=== PATIENT | female | born 1960 | race Caucasian/White ===

== ENCOUNTER → 2025-04-24 07:49 | Outpatient (REF) | payer OTHER, SELFPAY | LOC: RCS 07:49 | PROVIDERS: ATTENDING PHYSICIAN Internal Medicine Cardiovascular Disease; FAMILY PHYSICIAN Internal Medicine | DX: R07.2 Precordial pain (principal) | CPT/HCPCS: 78452; 93017; A9500; J2785 ==

== ENCOUNTER → 2025-05-08 14:50 | Outpatient (REF) | payer OTHER, SELFPAY | LOC: RCS 14:50 | PROVIDERS: ATTENDING PHYSICIAN Internal Medicine Cardiovascular Disease; FAMILY PHYSICIAN Internal Medicine | DX: R06.09 Other forms of dyspnea (principal) | CPT/HCPCS: 93306 ==

== ENCOUNTER 2025-09-19 15:41 | Observation (INO) | payer OTHER, SELFPAY ==
[2025-09-19] VITALS (13 sets, daily range): BP systolic 126–176; BP diastolic 46–108; BMI 23.3
--- NOTE | 2025-09-19 09:01 | EDRN ---
Dr. Rodriguez in room w/ pt and spouse.
[2025-09-19] MEDS: ZOFRAN 4 MG IV ×3 (09:23→14:44)
[2025-09-19] MEDS: VERSED 1 MG IV (09:24)
--- NOTE | 2025-09-19 09:26 | ED.GENMED ---
History of Present Illness
General
Chief Complaint: Abdominal Symptoms
Source: patient and spouse
Exam Limitations: none
Time Seen by Provider: 09/19/25 09:00
History of Present Illness
History of Present Illness:
Patient started last evening with chills nausea anxious feeling. She took her Ativan which she thought she threw up. She has had these issues in the past. No abdominal pain no chest pain. Some tingling of her arms and legs. Under significant
stress.
Past History
Past History
ED Past Medical History: COPD, GERD, HTN, Hypercholesterolemia, NIDDM (Diet controlled), Hypothyroidism and Other (H-pylori)
ED Past Surgical History: Appendectomy, Cholecystectomy and Gynecological
Social History
Tobacco: Smoker
Alcohol: None
Drug: None
Personal:
Living: with family
Review of Systems
Review of Systems
All Other Systems: Not applicable
Constitutional: Reports chills; Denies fever
Respiratory: Denies cough
ABD/GI: Denies abdominal pain
: Reports no symptoms
Phy Exam
Physical Exam
Physical Exam:
GENERAL: Alert and oriented in no apparent distress
EYE: Orbits normal.
NECK: Supple
ENT: Pharynx without erythema
CARDIAC: Regular rate and rhythm without any obvious murmurs.
LUNGS: Clear breath sounds,normal
ABDOMEN: Soft, without focal tenderness or distention
NEUROLOGICAL: Alert and oriented , grossly non-focal
SKIN: Warm and dry, no rash or lesion, no discoloration, skin intact.
MUSCULOSKELETAL: No edema,no deformity.Good color
PSYCH: Normal and appropriate interaction. Anxious
Course
Orders/Labs/Results
Orders:
Orders
09/19/25 09:06
Cardiac Monitoring- Treatment ONCE
IV Insert/Care/Rem.- Treatment PRN
Urinalysis Reflex To Culture Urgent
0.9% Sodium Chloride 1000 ml [Nss] 1,000 ml IV BOLUS
Midazolam HCl [Versed] 1 mg IV NOW STA
Ondansetron Injectable [Zofran] 4 mg IV NOW STA
Pulse Ox/cont/shift [RESP] Stat
Quantity: 1
09/19/25 09:07
Electrocardiogram (*1) Stat
Reason for Study: Abdominal Pain
EKG- Treatment ONCE
09/19/25 09:23
COVID-19 Antigen Urgent
Source: Nasal Swab
Complete Blood Count/With Diff Urgent
Comprehensive Metabolic Panel Urgent
Lipase Urgent
Troponin I Urgent
Blood Culture Q30M
BETH Source: Blood/Venous
Specimen Description:
Influenza A+B Rapid Molecular Urgent
BETH Source: Nasal Swab
Specimen Description:
09/19/25 09:51
Ondansetron Injectable [Zofran] 4 mg IV NOW STA
09/19/25 10:11
CT Abd/Pel (IV only)-DH only Urgent
Comment:
Reason For Exam: Recurrent vomiting
09/19/25 10:26
Blood Culture Q30M
BETH Source: Blood/Venous
Specimen Description:
09/19/25 14:36
Ondansetron Injectable [Zofran] 4 mg IV NOW STA
Abnormal Lab Results
09/19/25
09:23
Absolute Lymphs (auto) 0.9 L 10^3/uL
(1.2-3.4)
Neutrophils % 84.8 H %
(42.2-75.2)
Lymphocytes % 13.2 L %
(20.5-51.1)
Monocytes % 1.4 L %
(1.7-9.3)
Carbon Dioxide 21 L mmol/L
(22-30)
Glucose 141 H mg/dl
(70-99)
Calcium 10.8 H mg/dl
(8.4-10.2)
AST 38 H U/L
(14-36)
Albumin 5.1 H g/dl
(3.5-5.0)
09/19/25 09:23
09/19/25 09:23
Vital Signs
Initial and Last Documented VS:
Initial Vital Signs
Temp Pulse Resp BP Pulse Ox
98.4 F 78 16 157/83 100
09/19/25 08:33 09/19/25 08:33 09/19/25 08:33 09/19/25 08:33 09/19/25 08:33
Last Documented Vital Signs
Temp Pulse Resp BP Pulse Ox
98.4 F 49 16 149/73 97
09/19/25 08:33 09/19/25 13:15 09/19/25 13:15 09/19/25 13:00 09/19/25 13:29
MDM/Problems Addressed
Differential Diagnosis Includes:
Patient complains of acute onset of nausea chills fatigue. Large differential including viral syndrome, component of anxiety, other infectious issue. Clinically not in acute abdomen. Doubt cardiac but will check for completeness. Nausea meds
fluids. Dose of her antianxiety medication.
*Radiology
Radiology exam reviewed: radiology read reviewed (No acute findings. Left adrenal mass)
*Pulse Oximetry
SaO2: 100
Oxygen Mode of Delivery: Room air
Patient hypoxic: no
*EKG
Interpreted by ED Provider?: Yes
Interpretation: abnormal
Comparison EKG: changes noted
Heart Rate: 41
Rate: bradycardiac
Rhythm: sinus
[place]: normal axis
Interval: normal interval
QRS Pattern: normal QRS
Ischemia: no ischemia
*Critical Care Note
Total Time (30-74mins, 75-104mins- exclusive of procedures): Not Applicable
Data Reviewed
Review of Other/Old Records Reveals: Labs, Records and Testing
Update Note
Update Note:
0950.... Patient rechecked. Moderate bradycardia although stable blood pressure. No ischemic changes. Monitor will run from 40-70. I went in to check on the patient. Heart rate when I when it was 52. She states she felt somewhat improved.
However nausea has returned. Will continue to monitor heart rate and repeat dose of Zofran. QT interval within normal limits.
1015.... Patient rechecked multiple times. Remained stable. Still nausea. At times will get mildly bradycardic but remains with stable blood pressure. CT scan pending.
ED Attending Note
-
Portions of this chart may have been created with voice recognition software.� Occasional wrong word or��sound alike� substitutions may have occurred due to the inherent limitations of voice recognition software.
Discharge Plan
Departure
Patient Disposition: Admit
Date of Disposition: 09/19/25
Time of Disposition: 14:02
Presentation/result/management discussed w/ accepting MD/DO: Hospitalist
Discharge Problem:
Recurrent vomiting, new adrenal mass, Episodic bradycardia
Prescriptions:
No Action
levothyroxine [Synthroid] 137 MCG tablet
137 mcg PO DAILY
lorazepam 1 MG tablet
1 mg PO BID
celecoxib 200 MG capsule
200 mg PO HS
sertraline 100 MG tablet
100 mg PO HS
simvastatin 10 MG tablet
10 mg PO HS
aspirin [Aspir-Low] 81 MG tablet,delayed release (DR/EC)
81 mg PO HS
lansoprazole [Prevacid] 30 MG capsule,delayed release(DR/EC)
30 mg PO HS
metoprolol tartrate 25 MG tablet
25 mg PO HS
cholecalciferol (vitamin D3) 2,000 UNIT tablet
2,000 unit PO HS
vitamin E (dl, acetate) 400 UNITS capsule
400 units PO HS
biotin 1 MG capsule
1 mg PO HS
Referrals:
Leon Nieves DO [Family Provider, Internal Medicine]
Interventions
Interventions:
*Risk Screen - Suicide Last Done: 09/19/25 08:35
*General Assessment Last Done: 09/19/25 09:48
*Neglect/Abuse Screening Last Done: 09/19/25 08:35
*ED- Fall Risk Assessment Last Done: 09/19/25 09:48
*ED COVID-19 Vaccine History Last Done: 09/19/25 09:48
*ED Influenza Vaccine History Last Done: 09/19/25 09:48
HO-Saiobo-Dlqcvljruz Assessment Last Done: 09/19/25 09:48
Discharge Date and Time
Print Language: FRENCH
[2025-09-19] MEDS: NSS 1000 IV ×2 (09:37→18:01)
[2025-09-19 09:47] LABS: Hematocrit 41.7 % (37.0-47.0); Hemoglobin 14.9 g/dL (12.0-16.0); Mean Corp Hgb Conc. 35.7 g/dL (33.0-37.0); Mean Corpuscular Volume 81.8 fL (81.0-99.0); Nucleated Red Blood Cells % 0 %; Platelet Count 375 10^3/uL (130-400); Red Cell Dist. Width 12.5 % (11.5-14.5)
--- NOTE | 2025-09-19 10:02 | EDRN ---
Pt developed nausea again w/ a second dose of Zofran administered. HR 40's- low 50's. Dr. Rodriguez in to speak w/pt again.
[2025-09-19 10:07] LABS: ALT (SGPT) 30 U/L (0-35); AST (SGOT) 38 U/L (14-36); Albumin 5.1 g/dl (3.5-5.0); Alkaline Phosphatase 121 U/L (38-126); Blood Urea Nitrogen 11 mg/dl (7-17); Calcium 10.8 mg/dl (8.4-10.2); Carbon Dioxide 21 mmol/L (22-30); Chloride 105 mmol/L (98-107); Glucose 141 mg/dl (70-99); Lipase 98 U/L (23-300); Potassium 3.6 mmol/L (3.5-5.1); Sodium 137 mmol/L (135-145); Total Protein 7.9 g/dl (6.3-8.2); eGFR > 60.00
[2025-09-19 10:13] LABS: COVID-19 Antigen Negative (Negative)
[2025-09-19 10:17] LABS: Troponin I 0.014 ng/ml
--- NOTE | 2025-09-19 15:18 | HPS.HSE ---
Family Physician
-
Family Physician: Leon Nieves
Chief Complaint
-
Nausea and feeling anxious
History of Present Illness
65-year-old female with nausea and feeling anxious. She took Ativan and vomited back to. Vomited many times and not able to keep anything down. No abdominal pain. No fevers. She feels anxious
Medical History
Past Medical History
Past Medical History: Reports Other
Additional Past Medical History:
Migraines, small meningioma, sarcoidosis, hypertension, hyperlipidemia, hypothyroidism, uterine fibroids, diabetes,, history of Graves' disease, anxiety
Past Surgical History: Reports Other
Additional Past Surgical History:
Appendectomy, cholecystectomy, history of oral surgery, right carpal tunnel surgery, tubal ligation
Social History
Tobacco: Former Smoker
Alcohol: None
Drug: Marijuana
Living: With Family
Family History
Family History: Cancer (prostate ca father), Diabetes (father) and Other (mom copd)
Allergies / Home Medications
Allergies reflects when Allergies were last updated in [facility].
Home Medications with original date entered in [facility]
Allergy/Medication List:
Allergies
Allergy/AdvReac Type Severity Reaction Status Date / Time
codeine Allergy Hives Verified 09/19/25 08:33
Home Medications
levothyroxine 137 mcg tablet (Synthroid) 137 mcg PO MOTUWETHFRSA 08/02/09
lorazepam 1 mg tablet 1 mg PO BID 06/07/18
biotin 1 mg capsule 1 mg PO HS 11/27/18
cholecalciferol (vitamin D3) 50 mcg (2,000 unit) tablet 2,000 unit PO HS 11/27/18
simvastatin 10 mg tablet 10 mg PO HS 11/27/18
aspirin 81 mg tablet 81 mg PO DAILY 09/19/25
irbesartan 75 mg tablet 75 mg PO DAILY 09/19/25
levothyroxine 100 mcg capsule 100 mcg PO HUTTON 09/19/25
nifedipine 60 mg tablet,extended release 24 hr 60 mg PO HS 09/19/25
tizanidine 4 mg tablet 4 mg PO TIDPRN PRN muscle spasm 09/19/25
Review of Systems
-
A 12 point ROS was completed and negative except as noted: Yes
Cardiac: Denies Chest Pain
Abdomen/GI: Reports Nausea and Vomiting; Denies Abdominal Pain or Diarrhea
Psych: Reports Anxiety
Physical Exam
Vital Signs
Vital Signs
Temp Pulse Resp BP Pulse Ox
98.4 F 49 16 149/73 97
09/19/25 08:33 09/19/25 13:15 09/19/25 13:15 09/19/25 13:00 09/19/25 13:29
Physical Exam
General: Conversant and Other (anxious)
Respiratory: Clear
Cardiac: S1/S2 and Regular Rhythm
GI: Soft, Non Tender and Normal Bowel Sounds
Neuro: AO x 3 and Nonfocal/grossly intact
Psych: Anxious
Laboratory Results
-
09/19/25 09:23
09/19/25 09:23
Laboratory Results
Total Bilirubin 0.8 mg/dl (0.2-1.3) 09/19/25 09:23
AST 38 U/L (14-36) H 09/19/25 09:23
ALT 30 U/L (0-35) 09/19/25 09:23
Alkaline Phosphatase 121 U/L (38-126) 09/19/25 09:23
Troponin I 0.014 ng/ml 09/19/25 09:23
Lipase 98 U/L (23-300) 09/19/25 09:23
Impression/Plan
-
IMPRESSION/PLAN:
CT abdomen and pelvis with IV contrast-no acute pathology. Simple renal cyst. Enlarged. Bilateral too small to characterize hypodense renal lesions likely cysts increased in number. Left adrenal mass 1.5 cm. Enlarged. Pet imaging recommended
mild atherosclerotic vascular disease. There is moderate fecal material throughout the colon
# Intractable vomiting
Likely secondary to marijuana use
Admit observation
Antiemetics, IV fluids
Sips of clears
Advised to stop marijuana
# Hypothyroidism history of Graves' disease--continue levothyroxine
# Mild hypercalcemia-likely secondary to dehydration. Follow with hydration
# Hyperlipidemia/atherosclerosis-continue simvastatin, aspirin
# Hypertension-continue nifedipine, irbesartan
# Anxiety-continue lorazepam
# History of meningioma
# Diabetes- Diet controlled- Accu checks and SSI
# Constipation-bowel regimen
# Sarcoidosis
# Migraines
# Diet-controlled diabetes
# 1.5 cm adrenal mass-PET scan as outpatient-patient aware
# Ex Smoker
# DVT prophylaxis-Lovenox
# Full code
Discussed with significant other at bedside
[2025-09-19 16:11] LABS: Urine Character Clear (Clear)
[2025-09-19 16:25] LABS: Urine White Cell 0-2 /HPF (0-5)
[2025-09-19 17:09] LABS: TSH 0.46 uIU/ml (0.47-4.68)
[2025-09-19] MEDS: LOVENOX 40 MG SC (18:08)
--- NOTE | 2025-09-19 19:10 | PTCARENOTE ---
rec'd pt from ER. ambulated to bed. denies pain. NSS started at 75ml/hr. oriented to unit. call schwartz in reach
[2025-09-19] MEDS: ATIVAN 1 MG PO (20:04)
[2025-09-19] MEDS: COLACE 100 MG PO (20:04)
[2025-09-19] MEDS: SENOKOT 8.6 MG PO (20:04)
[2025-09-19] MEDS: LIPITOR 10 MG PO (20:04)
[2025-09-19] MEDS: VITAMIN D3 (cholecalciferol) 50 MCG PO (20:07)
[2025-09-19] MEDS: PROCARDIA XL (EXTENDED RELEASE) 60 MG PO (21:27)
[2025-09-20 00:16] LABS: Glucose - Point of Care 107 mg/dl (70-99)
[2025-09-20 03:09] VITALS: BP 107/57
[2025-09-20] MEDS: SYNTHROID 100 MCG PO (06:03)
[2025-09-20] MEDS: NSS 1000 IV (06:04)
[2025-09-20 06:18] LABS: Glucose - Point of Care 100 mg/dl (70-99)
[2025-09-20 07:04] VITALS: BP 122/66
[2025-09-20] MEDS: AVAPRO 75 MG PO (07:42)
[2025-09-20] MEDS: ATIVAN 1 MG PO (07:42)
[2025-09-20] MEDS: ASPIR LOW (ENTERIC COATED) 81 MG PO (07:42)
[2025-09-20] MEDS: SENOKOT PO (07:52)
[2025-09-20] MEDS: COLACE PO (07:52)
[2025-09-20 09:39] LABS: Blood Urea Nitrogen 13 mg/dl (7-17); Calcium 9.3 mg/dl (8.4-10.2); Carbon Dioxide 26 mmol/L (22-30); Chloride 105 mmol/L (98-107); Estimated Creatinine Clearance 72 ml/min; Glucose 83 mg/dl (70-99); Potassium 3.4 mmol/L (3.5-5.1); Sodium 139 mmol/L (135-145); eGFR > 60.00
[2025-09-20 11:45] VITALS: BP 126/46
[2025-09-20 11:45] LABS: Glucose - Point of Care 96 mg/dl (70-99)
[2025-09-20] MEDS: KCL 40 MEQ PO (14:05)
--- NOTE | 2025-09-20 14:26 | W.PN.HOSP.TC ---
Addendum entered and electronically signed by Kathy Leon MD 09/20/25 14:37:
Hypokalemia-replace
Patient states that she had loose bowel movements last night and also another bowel movement this morning
Original Note:
Today's Communication/Plan
-
Discharge
Assessment / Plan
Assessment / Plan
CT abdomen and pelvis with IV contrast-no acute pathology. Simple renal cyst. Enlarged. Bilateral too small to characterize hypodense renal lesions likely cysts increased in number. Left adrenal mass 1.5 cm. Enlarged. Pet imaging recommended
mild atherosclerotic vascular disease. There is moderate fecal material throughout the colon
No more vomiting. Tolerated breakfast and lunch
Cardiovascular system S1-S2 appreciated
Chest clear to auscultation
Abdomen soft and nontender
No pedal edema
# Intractable vomiting
Likely secondary to marijuana use
Resolved and patient is tolerating a diet
Advised to stop marijuana
# Hypothyroidism history of Graves' disease--continue levothyroxine. Elevated T4. Patient states that the dose was adjusted 5 months ago she is due to see molder inflated ball end of this month. I will go down to 100 mcg Sunday and Sunday and
continue with 137 rest of the days and repeat TFTs in 4-6 weeks
# Mild hypercalcemia-likely secondary to dehydration. Better.
# Hyperlipidemia/atherosclerosis-continue simvastatin, aspirin
# Hypertension-continue nifedipine, irbesartan
# Anxiety-continue lorazepam
# History of meningioma
# Diabetes- Diet controlled- Accu checks and SSI. HbA1C pending
# Constipation-bowel regimen .
# Sarcoidosis
# Migraines
# Diet-controlled diabetes
# 1.5 cm adrenal mass-PET scan as outpatient-patient aware
# Ex Smoker
# DVT prophylaxis-Lovenox
# Full code
Discussed with significant other at bedside
D/W RN
Thyroid function test reviewed from patient's chart from [facility]. Have been stable so far.
Reviewed about PET scan as outpatient
She is feeling well and wants to go home
HR much better. Could have been vasovagal secondary to constant vomiting.
More than 30 minutes spent in discharge including
Final examination of the patient
Summarizing hospital stay
Instructions for continuing care to all relevant caregivers
Preparation of discharge records, prescriptions, and referral forms
Anticipated Discharge: Today
Subjective/Interval History
-
Date of Service: September 20, 2025
Objective Data
-
Labs:
Laboratory Results
09/20/25
08:01
Sodium 139
Potassium 3.4 L
Chloride 105
Carbon Dioxide 26
BUN 13
Creatinine 0.6
Glucose 83
Calcium 9.3 D
Vital Signs:
Vital Signs
Temp Pulse Resp BP Pulse Ox
98.7 F 59 18 126/46 97
09/20/25 11:45 09/20/25 11:45 09/20/25 11:45 09/20/25 11:45 09/20/25 11:45
I&O
09/19/25 09/20/25 09/21/25
06:59 06:59 06:59
Intake Total 1545 / 1545
Balance 1545 / 1545
[2025-09-20 14:29] LABS: Glycohemoglobin (HgbA1c) 5.7 % (4.0-5.9)
--- NOTE | 2025-09-20 14:35 | W.DS.TRANS ---
Addendum entered and electronically signed by Kathy Leon MD 09/20/25 14:57:
Dictation- [id number]
Original Note:
DC Summary - Automotive Parts Salesperson
-
Discharge Instructions:
Discharge Diagnosis/Procedures Intractable meeting
Hypothyroidism
Hyperlipidemia/atherosclerosis
Hypertension
Anxiety
History of meningioma
Diet-controlled diabetes
Constipation
Migraines
1.5 cm adrenal mass
Diet Diabetic, Carb Controlled,2 Gram Sodium
Activity As tolerated
Driving Restrictions As prior to admission
Blood Work Thyroid function test in 4 to 6 weeks
Others Tests PET scan as outpatient for the adrenals
Instructions:
Stand-Alone Forms:
Changes to Home Medications: Yes
Discharge Medications:
DC Medications w/original date entered in [place]
tizanidine 4 mg tablet 4 mg PO TIDPRN PRN muscle spasm 09/19/25
aspirin 81 mg tablet 81 mg PO DAILY Blood clot prevention/tx #0 tabs 09/20/25
biotin 1 mg capsule 1 mg PO HS Supplement #0 caps 09/20/25
cholecalciferol (vitamin D3) 50 mcg (2,000 unit) tablet 2,000 unit PO HS Supplement #0 tabs 09/20/25
irbesartan 75 mg tablet 75 mg PO DAILY Blood pressure #0 tabs 09/20/25
levothyroxine 100 mcg capsule 100 mcg PO SUWE Thyroid #0 caps 09/20/25
levothyroxine 137 mcg tablet (Synthroid) 137 mcg PO MOTUTHFRSA Thyroid #0 tabs 09/20/25
lorazepam 1 mg tablet 1 mg PO BID aniety #0 tabs 09/20/25
nifedipine 60 mg tablet,extended release 24 hr 60 mg PO HS Blood pressure #0 tabs 09/20/25
polyethylene glycol 3350 17 gram oral powder packet 17 g PO DAILY Constipation #0 ea 09/20/25
simvastatin 10 mg tablet 10 mg PO HS High cholesterol #0 tabs 09/20/25
Home Medication Changes
miralax new
Pending Results: Yes
Additional Pending Results:
HbA1C
--- NOTE | 2025-09-20 14:53 | CM ---
Patient was admitted under OBS, [place] letter provided to patient, signed and placed on chart. Patient lives with significant other in a 1 story home with no steps to enter, patient is independent with adl's and ambulation, no dme, patient drives,
home when stable no needs.
Patient requested information on AD, AD packet provided.
PCP: Dr. Nieves
Pharmacy: [facility] in [place]
Plan; Home today no needs.
[2025-09-20 15:01] VITALS: BP 126/56
== END 2025-09-20 15:08 | disposition home or self-care (01) ==
LOC: 4 WEST ACU 15:41
PROVIDERS: ADMITTING PHYSICIAN Hospitalist; EMERGENCY PHYSICIAN Emergency Medicine; FAMILY PHYSICIAN Internal Medicine
DX: R11.2 Nausea with vomiting, unspecified (principal); R10.9 Unspecified abdominal pain; R68.83 Chills (without fever); R20.2 Paresthesia of skin; E78.00 Pure hypercholesterolemia, unspecified; I10 Essential (primary) hypertension; E03.9 Hypothyroidism, unspecified; J44.9 Chronic obstructive pulmonary disease, unspecified; E11.9 Type 2 diabetes mellitus without complications; K21.9 Gastro-esophageal reflux disease without esophagitis; F17.200 Nicotine dependence, unspecified, uncomplicated; F41.9 Anxiety disorder, unspecified; D86.9 Sarcoidosis, unspecified; G43.909 Migraine, unspecified, not intractable, without status migrainosus; R00.1 Bradycardia, unspecified; E27.8 Other specified disorders of adrenal gland; N28.1 Cyst of kidney, acquired; F12.90 Cannabis use, unspecified, uncomplicated; E83.52 Hypercalcemia; K59.00 Constipation, unspecified; E87.6 Hypokalemia; I70.90 Unspecified atherosclerosis; Z79.1 Long term (current) use of non-steroidal anti-inflammatories (NSAID); Z79.82 Long term (current) use of aspirin; Z90.49 Acquired absence of other specified parts of digestive tract; Z86.011 Personal history of benign neoplasm of the brain; Z80.42 Family history of malignant neoplasm of prostate; Z83.3 Family history of diabetes mellitus; Z88.5 Allergy status to narcotic agent; Z79.899 Other long term (current) drug therapy; Z79.890 Hormone replacement therapy; Z11.52 Encounter for screening for COVID-19; Z82.5 Family history of asthma and other chronic lower respiratory diseases; Z98.51 Tubal ligation status
CPT/HCPCS: 74177; 80048; 80053; 81003; 81015; 82962; 83036; 83690; 84436; 84443; 84484; 85025; 87040; 87502; 87811; 93005; 94760; 96361; 96374; 96375; 96376; 99285; G0378; Q9967

== ENCOUNTER 2025-10-03 00:25 | Emergency (ER) | payer OTHER, SELFPAY ==
[2025-10-03 00:33] VITALS: BP 141/80
[2025-10-03 00:44] VITALS: BP 139/68
--- NOTE | 2025-10-03 00:54 | ED.GENMED ---
History of Present Illness
General
Chief Complaint: Chest Pain
Source: patient and records
Time Seen by Provider: 10/03/25 00:41
History of Present Illness
History of Present Illness:
65-year-old female with past medical history of hypertension, hyperlipidemia, yna-xuzvmja-bslqlhiws diabetes, gastroparesis (recent admission to this facility for persistent nausea and vomiting which was thought to be related to THC use)
hypothyroidism presenting to the emergency department for evaluation of, vertigo that has been persistent since 8 PM accompanied with nausea and vomiting, chest discomfort, lightheadedness and generalized weakness. Patient states that she never
feels as if she fully recovered from her hospitalization a little over 1 week ago, has followed up with her lotus notes administrator and is continuing the levothyroxine prescription change as recommended but will continue to follow with outpatient blood work
as well as is scheduled for a swallowing study this coming week. She does endorse having viral-like symptoms shortly after her discharge but reports that the symptoms seem to have all been resolved. Denies any fevers, chills, rigors, shortness of
breath, palpitations or any other concerns presently. Patient states she did not start vomiting until she arrived to the emergency department.
Past History
Past History
ED Past Medical History: COPD, GERD, HTN, Hypercholesterolemia, NIDDM (Diet controlled), Hypothyroidism and Other (H-pylori)
ED Past Surgical History: Appendectomy, Cholecystectomy and Gynecological
Social History
Tobacco: Smoker
Alcohol: None
Drug: None
Personal:
Living: with family
Review of Systems
Review of Systems
All Other Systems: ROS reviewed and negative except as documented in HPI and ROS
Phy Exam
Physical Exam
Physical Exam:
GENERAL: Alert , in no apparent distress but does appear uncomfortable and anxious
EYE: clear conjunctiva b/l, pupils 3 mm bilateral, EOMI, no nystagmus
HEAD: NCAT
ENT: o/p clr, mmm.
CARDIAC: Regular rate and rhythm .
LUNGS: Clear breath sounds bilaterally, no acute respiratory distress, no wheezes/rales/rhonchi
ABDOMEN: Soft, without focal tenderness, no r/g, no cvat
NEUROLOGICAL: Alert and oriented
SKIN: Warm and dry, skin intact.
MUSCULOSKELETAL: No edema, well perfused.
PSYCH: Normal and appropriate interaction.
Scores
Heart Failure Risk
Heart Failure Risk Score: Not Applicable
Heart Score for Chest Pain Patients
STEMI patient?: Not applicable
Withdrawal Assessment of Alcohol
Withdrawal Assessment Completed?: Not applicable
Course
Orders/Labs/Results
Orders:
Orders
10/03/25 00:26
EKG [Electrocardiogram (*1)] Urgent
Reason for Study: Chest Pain
EKG- Treatment ONCE
10/03/25 00:55
Meclizine [Antivert] 25 mg PO NOW STA
Metoclopramide [Reglan] 10 mg IV NOW STA
CR Chest - 2 Views Urgent
Comment:
Reason For Exam: chest pain, vomiting
10/03/25 01:11
Complete Blood Count/With Diff Urgent
Comprehensive Metabolic Panel Urgent
Lipase Urgent
TSH Reflex To Free T4 Urgent
Troponin I Urgent
Abnormal Lab Results
10/03/25
01:11
RBC 4.16 L 10^6/uL
(4.20-5.40)
Hct 34.5 L %
(37.0-47.0)
Glucose 139 H mg/dl
(70-99)
10/03/25 01:11
10/03/25 01:11
Vital Signs
Initial and Last Documented VS:
Initial Vital Signs
Pulse Resp BP Pulse Ox
84 22 141/80 100
10/03/25 00:33 10/03/25 00:33 10/03/25 00:33 10/03/25 00:33
Last Documented Vital Signs
Pulse Resp BP Pulse Ox
69 15 118/61 100
10/03/25 02:35 10/03/25 02:35 10/03/25 02:35 10/03/25 00:55
MDM/Problems Addressed
Differential Diagnosis Includes:
BPPV
Labyrinthitis
Vestibular neuritis
CVA
ACS
Boerhaave's syndrome
Gastroparesis exacerbation
Cannabinoid hyperemesis
MDM/Problems Addressed:
65-year-old female presenting to the ER for evaluation of vertigo, vomiting, discomfort and generally feeling unwell, some of the symptoms are similar to what brought her into the emergency department and ultimately admitted a little over 1 week ago
but patient states she did not have the vertigo or chest discomfort at that time. Recent viral illness making possible labyrinthitis/vestibular neuritis a possible diagnosis with her vertiginous symptoms. Doubt ACS, EKG without any ischemic
changes or ectopy. Will obtain labs, treat symptoms with Reglan and fluids. Disposition pending.
*Pulse Oximetry
SaO2: 100
Oxygen Mode of Delivery: Room air
Patient hypoxic: no
*EKG
Heart Rate: 90
Rate: normal
Rhythm: sinus
Ischemia: no ischemia
*Welding Machine Operator Helper Arc Interpretation
Rate: normal
Heart Rate: 87
Rhythm: sinus
*Critical Care Note
Total Time (30-74mins, 75-104mins- exclusive of procedures): Not Applicable
Data Reviewed
Review of Other/Old Records Reveals: Labs, Records and Discharge Summary
Patient Management
Escalation/DeEscalation of care consider admission/obs:
Patient symptoms resolved and feels significantly improved. Labs reassuring. Suspect acute on chronic exacerbation given history of similar events in past. Continue with outpatient follow up and management as needed. Stable for d/c home and aware of
return precautions
ED Attending Note
-
Portions of this chart may have been created with voice recognition software.� Occasional wrong word or��sound alike� substitutions may have occurred due to the inherent limitations of voice recognition software.
Discharge Plan
Departure
Patient Disposition: Home (Routine Discharge)
Date of Disposition: 10/03/25
Time of Disposition: 02:31
Patient with high blood pressure during this ER visit?: No
Discharge Problem:
Nausea and vomiting
Instructions: Chest Pain That Is Not Caused by the Heart (DC)
Prescriptions:
New
metoclopramide HCl [Reglan] 10 mg tablet
10 mg PO Q8HPRN PRN (Reason: nausea and vomiting) Qty: 8 0RF
No Action
tizanidine 4 mg tablet
4 mg PO TIDPRN PRN (Reason: muscle spasm)
levothyroxine [Synthroid] 137 MCG tablet
137 mcg PO MOTUTHFRSA Qty: 0 0RF
simvastatin 10 MG tablet
10 mg PO HS Qty: 0 0RF
nifedipine 60 mg tablet extended release 24hr
60 mg PO HS Qty: 0 0RF
irbesartan 75 mg tablet
75 mg PO DAILY Qty: 0 0RF
aspirin 81 mg Tablet
81 mg PO DAILY Qty: 0 0RF
lorazepam 1 MG tablet
1 mg PO BID Qty: 0 0RF
Patient Comments:
last fill 08/25/25 #60
cholecalciferol (vitamin D3) 2,000 UNIT tablet
2,000 unit PO HS Qty: 0 0RF
levothyroxine 100 mcg capsule
100 mcg PO SUWE Qty: 0 0RF
Referrals:
Leon Nieves DO [Family Provider, Internal Medicine]
Interventions
Interventions:
*Risk Screen - Suicide Last Done: 10/03/25 00:33
*General Assessment Last Done: 10/03/25 01:23
*Neglect/Abuse Screening Last Done: 10/03/25 00:33
*ED- Fall Risk Assessment Last Done: 10/03/25 01:11
*ED COVID-19 Vaccine History Last Done: 10/03/25 01:11
*ED Influenza Vaccine History Last Done: 10/03/25 01:11
*Nursing Disposition Last Done: 10/03/25 02:50
ED- Cardiac Assessment Last Done: 10/03/25 01:23
Discharge Date and Time
Discharge Date/Time: 10/03/25 02:50
Print Language: HUNGARIAN
[2025-10-03 01:00] VITALS: BP 126/59
[2025-10-03] MEDS: REGLAN 10 MG IV (01:10)
[2025-10-03 01:15] VITALS: BMI 23.7
[2025-10-03] MEDS: ANTIVERT 25 MG PO (01:18)
[2025-10-03 01:22] LABS: Hematocrit 34.5 % (37.0-47.0); Hemoglobin 12.2 g/dL (12.0-16.0); Mean Corp Hgb Conc. 35.4 g/dL (33.0-37.0); Mean Corpuscular Volume 82.9 fL (81.0-99.0); Nucleated Red Blood Cells % 0 %; Platelet Count 332 10^3/uL (130-400); Red Cell Dist. Width 12.7 % (11.5-14.5)
--- NOTE | 2025-10-03 01:28 | EDRN ---
Pt reports dizziness and chest pain in the middle of her chest radiating through to her back. Symptoms started at 1999 last night. Pt said the chest pain was constant; however, while talking with this RN pt said the chest pain went away. Pt
discharged from [facility] about 1 week ago. Pt says she has not used marijuana in few months and that during her recent stay, the doctors blamed her n/v on marijuana which is not the case. Pt developed vomiting when she arrived to the ED. Pt also has
nausea. Pt reports URI symptoms when she was discharged and that those symptoms have mostly resolved. says pt still has a cough, rarely productive. No fever/chills, abd pain, urinary symptoms, diarrhea/constipation.
[2025-10-03 01:43] LABS: ALT (SGPT) 15 U/L (0-35); AST (SGOT) 22 U/L (14-36); Albumin 4.3 g/dl (3.5-5.0); Alkaline Phosphatase 87 U/L (38-126); Blood Urea Nitrogen 16 mg/dl (7-17); Calcium 9.7 mg/dl (8.4-10.2); Carbon Dioxide 25 mmol/L (22-30); Chloride 105 mmol/L (98-107); Estimated Creatinine Clearance 74 ml/min; Glucose 139 mg/dl (70-99); Lipase 176 U/L (23-300); Potassium 3.5 mmol/L (3.5-5.1); Sodium 135 mmol/L (135-145); Total Protein 6.6 g/dl (6.3-8.2); eGFR > 60.00
[2025-10-03 01:55] LABS: Troponin I < 0.012 ng/ml
[2025-10-03 02:35] VITALS: BP 118/61
== END 2025-10-03 02:50 | disposition home or self-care (01) ==
LOC: EMR 00:25
PROVIDERS: Physician Assistant Medical; EMERGENCY PHYSICIAN Student in an Organized Health Care Education/Training Program; FAMILY PHYSICIAN Internal Medicine
DX: R11.2 Nausea with vomiting, unspecified (principal); E11.43 Type 2 diabetes mellitus with diabetic autonomic (poly)neuropathy; K31.84 Gastroparesis; I10 Essential (primary) hypertension; E78.00 Pure hypercholesterolemia, unspecified; J44.9 Chronic obstructive pulmonary disease, unspecified; E03.9 Hypothyroidism, unspecified; K21.9 Gastro-esophageal reflux disease without esophagitis; F17.200 Nicotine dependence, unspecified, uncomplicated; Z79.82 Long term (current) use of aspirin
CPT/HCPCS: 99284; 96374; 71046; 80053; 83690; 84443; 84484; 85025; 93005

== ENCOUNTER → 2025-10-07 07:50 | Outpatient (REF) | payer OTHER, SELFPAY | LOC: RAD 07:50 | PROVIDERS: ATTENDING PHYSICIAN Internal Medicine Endocrinology, Diabetes & Metabolism; FAMILY PHYSICIAN Internal Medicine | DX: E03.9 Hypothyroidism, unspecified (principal); R11.2 Nausea with vomiting, unspecified | CPT/HCPCS: 78264; A9541 ==